=== PATIENT | female | born 1960 | race Caucasian/White ===

== ENCOUNTER 2016-09-05 07:08 | Day surgery (SDC) | payer MEDICARE, OTHER ==
[~2016-09-05] VITALS: Ht 165.1 cm; Wt 59.4 kg
[~2016-09-05 07:08] MED LIST: ALBU1.25 NEB; ARFO15VI NEB; BUDE10.2 IH; CEFAZOLIN 2GM PREMIX 50 ML IV PRN; CYCL10TA2 PO; DEXL60CA PO; DIPH-121 PO; ERGO500012 PO; FENTANYL PF 100 MCG/2 ML VIAL. IV PRN; FOLI1TAB16 PO; GABA-586 PO; IV RINGERS,LACTATED 1000ML 1,000 ML IV SCH; LEVO200T5 PO; LIDOCAINE 1% 1 ML SYRINGE. ID PRN; MULT1TAB52 PO; OMEG1CAP16 PO; ONDANSETRON PF 4 MG/2 ML VIAL. IV PRN; PROCHLORPERAZINE 10 MG/2 ML VIAL. IV PRN; ROFL500T PO; VENTOLIN HFA18 GM INH
[2016-09-05] MEDS ORDERED: PROPOFOL 20 ML IV ONE ×2 (07:57→09:34)
[2016-09-05] MEDS ORDERED: DEXAMETHASONE SOD PHOS 20 MG/5 ML VIAL. ONE (07:57)
[2016-09-05] MEDS ORDERED: ONDANSETRON PF 4 MG/2 ML VIAL. ONE (07:57)
[2016-09-05] MEDS ORDERED: MIDAZOLAM HCL 2 MG/2 ML VIAL. ONE (07:57)
[2016-09-05] MEDS ORDERED: ROCURONIUM 50 MG/5 ML VIAL. ONE ×2 (07:57→09:35)
[2016-09-05] MEDS ORDERED: LIDOCAINE 2% 100 MG/5 ML DISP.SYRIN. ONE (07:57)
[2016-09-05] MEDS ORDERED: FENTANYL PF 100 MCG/2 ML VIAL. ONE ×3 (07:57→09:52)
[2016-09-05] MEDS ORDERED: BUPIVACAINE-EPI 0.25%-1:200000 MPF 30 ML VIAL. ONE (08:10)
[2016-09-05] MEDS ORDERED: GLYCOPYRROLATE 1 MG/5 ML VIAL. ONE (09:20)
[2016-09-05] MEDS ORDERED: NEOSTIGMINE METHYLSULFATE 5 MG/5 ML SYRINGE. ONE (09:21)
[2016-09-05] MEDS ORDERED: SEVOFLURANE 61 TO 120 MINUTES. IH ONE (09:47)
--- NOTE | 2016-09-05 09:57 | PDOC ---
BRIEF OPERATIVE NOTE Date: Sep 05, 2016 Pre-Op Diagnosis Incarcerated ventral hernia Post-Op Diagnosis Same Procedure Performed Robotic assisted L/S Ventral hernia repair with Mesh Surgeon Noel Anesthesia Type: General Blood Loss 5ml Specimens Obtained None Findings as above Complications None ZACHARY KEN MD Sep 05, 2016 09:57
--- NOTE | 2016-09-05 09:58 | DISCH ---
DISCHARGE INSTRUCTIONS Condition on Discharge Condition on Discharge: Stable Activity After Discharge Activity Instructions for Disc: Avoid exertion Other activity instructions: No lifting >20lbs for 2 weeks Diet after Discharge Diet after Discharge: Regular Wound Incision Care Other wound/incision instructi: May shower in 24 hours Contacting the after DC Call your doctor for: If your condition worsens Follow-Up Follow up with: Dr Ken in 2 weeks ZACHARY KEN MD Sep 05, 2016 09:58
[2016-09-05] MEDS: FENTANYL PF 100 MCG/2 ML VIAL. IV PRN ×5 (10:18→10:48)
[2016-09-05] MEDS: MORPHINE SULFATE 2 MG/ML DISP.SYRIN. IV PRN ×3 (10:31→10:55)
[2016-09-05] MEDS ORDERED: HYDR-79 PO (10:38)
[2016-09-05] MEDS ORDERED: HYDROCODON/IBUPROFEN 7.5/200MG TABLET. PO PRN (10:45)
[2016-09-05] MEDS: HYDROMORPHONE 2 MG/ML VIAL. IV PRN ×2 (11:19→11:30)
[2016-09-05 12:13] VITALS: BP 126/62
--- NOTE | 2016-09-05 14:26 | OP ---
DATE OF SURGERY: 09/05/2016 PREOPERATIVE DIAGNOSIS: Incarcerated ventral hernia. POSTOPERATIVE DIAGNOSIS: Incarcerated ventral hernia. NAME OF THE PROCEDURE: Robotic-assisted laparoscopic ventral hernia repair with mesh. SURGEON: Willie Ken MD INDICATIONS FOR THE PROCEDURE: The patient is a 56-year-old female who has complained of a bulge just above the umbilicus, becoming more painful and larger. Procedure of robotic-assisted laparoscopic ventral hernia repair was explained to the patient in detail. Risks and benefits were also discussed including bleeding, infection, injury to intraabdominal contents, possibly necessitating further open operations. Alternatives of this procedure were also discussed with the patient who seemed to understand and gave verbal and written consent to have the procedure performed. DESCRIPTION OF PROCEDURE: The patient was taken to the operating room and placed in the supine position. General anesthesia was initiated. Once the patient was asleep and intubated, her abdomen was prepped and draped in the usual sterile fashion using ChloraPrep. An area in the left upper quadrant just below the costal margin was injected with 0.25% Marcaine with epinephrine. Small incision was made with an 11 blade scalpel and a 5 mm Visiport was placed under direct visualization into the abdomen. Pneumoperitoneum was then achieved. The 5 mm camera was placed within the abdomen and the abdomen was inspected. No other abnormalities were noted. It was noted there was about a 4 cm diameter hernia just above the umbilicus, incarcerated with omentum. At this point, three 8.5 mm da Mary ports were placed under direct visualization, 1 in the left mid abdomen, 1 in the left lower abdomen and 1 in the left upper abdomen. At this point, the da Mary robot was brought in and docked at all ports. Camera port was placed and a grasper and EndoShears scissors were placed. Surgeon went to the da Mary console. Using a grasper and EndoShears, the adherent tissues to the hernia were taken down. The hernia defect was then closed with a nonabsorbable 2-0 V-Loc suture. A VersaLite mesh was cut to the diameter, 6 cm were placed over the defect. This was sewn in place with a running 2-0 V-Loc absorbable suture. Once this was complete, the ports were removed and pneumoperitoneum was reduced and the incisions were closed with a 4-0 subcuticular Monocryl. Wen Larai-Strips, 4x4s and Medipore tape were applied as dressings. The patient was awakened, extubated in the operating room, taken to recovery in stable condition. All sponge and instrument counts listed as correct. Estimated blood loss 5 mL. WILLIE KEN MD DR: SHANTELL/marysol JOB#: [id number] / [id number] STACIE Francisco
== END 2016-09-05 12:51 | disposition home or self-care (01) ==
LOC: SURG 07:08
PROVIDERS: ATTEND Surgery
DX: K43.6 Other and unspecified ventral hernia with obstruction, without gangrene (principal); J44.9 Chronic obstructive pulmonary disease, unspecified; J45.909 Unspecified asthma, uncomplicated; E03.9 Hypothyroidism, unspecified; F17.210 Nicotine dependence, cigarettes, uncomplicated; Z72.89 Other problems related to lifestyle; Z87.39 Personal history of other diseases of the musculoskeletal system and connective tissue
CPT/HCPCS: 49653; C1781; J0690; J1100; J1170; J2250; J2270; J2405; J2704; J3010; J3490; J7120; J2710

== ENCOUNTER → 2018-12-07 | Outpatient (CLI) | payer MEDICARE ==
[~2018-12-07] MED LIST changes: -CEFAZOLIN 2GM PREMIX 50 ML IV PRN; -DEXL60CA PO; +DEXL60CA2 PO; -ERGO500012 PO; +ERGO500027 PO; -FENTANYL PF 100 MCG/2 ML VIAL. IV PRN; -GABA-586 PO; +GABA300C18 PO; +HYDROCODONE-IB1 EAC3 PO; -IV RINGERS,LACTATED 1000ML 1,000 ML IV SCH; -LIDOCAINE 1% 1 ML SYRINGE. ID PRN; -OMEG1CAP16 PO; +OMEG1CAP27 PO; -ONDANSETRON PF 4 MG/2 ML VIAL. IV PRN; -PROCHLORPERAZINE 10 MG/2 ML VIAL. IV PRN; -ROFL500T PO; +ROFL500T7 PO
--- NOTE | 2018-12-07 16:14 | RAD ---
MRI Lumbar Spine without contrast History: Worsening chronic low back pain bilaterally Technique: Multiplanar, multi sequential noncontrast MR imaging was performed of the lumbar spine. Comparison: None available at this time Findings: There is minimal grade 1 anterior spondylolisthesis L5-S1 and L2-3, minimal posterior subluxation L1 relative to L2. Lumbar vertebral body stature is overall maintained. There is mild dextroscoliosis centered near L2. There is very mild right lateral subluxation of L2 relative L3. There is variable fairly advanced degenerative disc disease at L1-L2 and L2-3, on the right at L3-4, and greater posteriorly at L4-5. There is mild degenerative disc disease at L5-S1 and moderate degenerative disc disease at T12-L1. Conus terminates at L1. There is multilevel mild endplate edema greatest at L1-L2. T12-L1: Spinal canal and neural foramina are adequate. L1-L2: There is minimal disc osteophyte complex greater in the far left lateral recess. There is mild narrowing of the left neural foramen, right neural foramen adequate. There is mild facet hypertrophic change. L2-L3: There is mild buckling of the ligamentum flavum and [id number] right greater than left facet degenerative change. There is mild deformity of the thecal sac. There is variable mild narrowing of the far lateral recesses bilaterally somewhat greater on the right. There is mild posterior narrowing of the left neural foramen, right neural foramen adequate. L3-L4: There is mild to moderate facet degenerative change greater on the right. There is negligible disc osteophyte complex greater in the right lateral recess and inferior right neural foramen. Neural foramina are overall adequate. Spinal canal is adequate. L4-L5: There is mild buckling of the ligamentum flavum and facet hypertrophic change. There is negligible disc osteophyte complex and bulge. Spinal canal is overall adequate. Neural foramina are adequate. L5-S1: There is moderate facet hypertrophic change. There is a synovial cyst along the lateral left facet articulation, does not protrude into the spinal canal. There is negligible bulge. Spinal canal is adequate. Neural foramina are adequate. Impression: 1. There is multilevel mild abnormal alignment as stated. There is mild dextroscoliosis. There is multilevel facet degenerative change. There is multilevel fairly advanced degenerative disc disease. There is no significant lumbar spinal stenosis, variable mild narrowing of the far lateral recesses bilaterally at L2-3. There is no significant lumbar neural foramina compromise. Electronically signed by: Romle Ortiz MD (12/07/2018 4:11 PM) [id number]
== END | disposition home or self-care (01) ==
LOC: MRI 14:25
PROVIDERS: ATTEND Physician Assistant Medical
DX: M51.35 Other intervertebral disc degeneration, thoracolumbar region (principal); M47.816 Spondylosis without myelopathy or radiculopathy, lumbar region; M43.17 Spondylolisthesis, lumbosacral region; M41.86 Other forms of scoliosis, lumbar region; M71.38 Other bursal cyst, other site; M25.78 Osteophyte, vertebrae
CPT/HCPCS: 72148